=== PATIENT | male | born 1960 | race American Indian/Alaskan Native ===

== ENCOUNTER 2017-11-10 01:22 | Inpatient (IN) | payer OTHER ==
[2017-11-10] MEDS ORDERED: PROVENTIL IH ONE ×2 (01:48→02:00)
--- NOTE | 2017-11-10 02:31 | XRay Report ---
FINAL REPORT PROCEDURE: XR CHEST ROUTINE 2V TECHNIQUE: PA and lateral chest radiographs were obtained. CPT 52510 HISTORY: Shortness of breath COMPARISON: No prior studies are available for comparison. FINDINGS: Heart: Normal. Mediastinum/Vessels: Normal. Lungs/Pleural space: Lungs are expanded. There are mild fibrotic changes at the lung bases. There are no active infiltrates. There is no effusion or pneumothorax.. Bony thorax: No acute osseous abnormality. Other: IMPRESSION: Heart size is normal.. Lungs are expanded. There are mild fibrotic changes at the lung bases. There are no active infiltrates. There is no effusion or pneumothorax..
[2017-11-10 02:34] LABS: Basophils # (Auto) 0.1 K/mm3 (0.0-0.1); Basophils % (Auto) 0.7 % (0.0-1.8); Eosinophils # (Auto) 0.1 K/mm3 (0.0-0.4); Eosinophils % (Auto) 0.6 % (0.0-4.3); Hematocrit 47.4 % (35.5-45.6); Hemoglobin 15.7 gm/dl (11.8-15.2); Lymphocytes # (Auto) 2.7 K/mm3 (1.2-5.4); Lymphocytes % (Auto) 31.9 % (13.4-35.0); Mean Corpuscular HGB Conc 33 % (32-34); Mean Corpuscular Hemoglobin 28 pg (28-32); Mean Corpuscular Volume 86 fl (84-94); Monocytes # (Auto) 0.9 K/mm3 (0.0-0.8); Platelet Count 262 K/mm3 (140-440); Red Blood Count 5.54 M/mm3 (3.65-5.03); Red Cell Distribution Width 17.9 % (13.2-15.2)
[2017-11-10 02:46] LABS: Calcium 8.7 mg/dL (8.4-10.2)
[2017-11-10 05:30] LABS: Chol/HDL Ratio 4.76 %
[2017-11-10] MEDS ORDERED: ATROVENT IH ONE (06:16)
[2017-11-10] MEDS ORDERED: DUONEB *Not for PRN Use IH ONE (06:21)
--- NOTE | 2017-11-10 07:05 | Emergency Department Report ---
ED General Adult HPI - General Chief complaint: Dyspnea/Respdistress Stated complaint: SB / CLAUDE Time Seen by Provider: 11/10/17 06:40 Source: patient Mode of arrival: Ambulatory Limitations: No Limitations - History of Present Illness Initial comments: Many year smoker sick with a cough and cold for 2 weeks to 3 weeks now with greenish yellowish productive sputum and exertional dyspnea. Denies chest pain denies Swelling or history of DVT PE no nausea vomiting diarrhea no tearing pain no focal neural complaints no headache no stiff neck no fever -: Gradual, days(s) Radiation: non-radiation Consistency: intermittent Worsens with: other (exertion) Associated Symptoms: malaise, shortness of breath. denies: confusion, chest pain, cough, diaphoresis, headaches, loss of appetite, syncope (rodriguez) Treatments Prior to Arrival: none - Related Data Home Medications Medication Instructions Recorded Confirmed Last Taken No Known Home Medications [No 11/10/17 11/10/17 Unknown Reported Home Medications] Allergies Allergy/AdvReac Type Severity Reaction Status Date / Time No Known Allergies Allergy Unverified 11/10/17 01:59 ED Review of Systems ROS: Stated complaint: SB / CLAUDE Other details as noted in HPI Comment: All other systems reviewed and negative Constitutional: malaise. denies: diaphoresis, fever Eyes: denies: eye discharge, vision change ENT: denies: dental pain, hearing loss, epistaxis Respiratory: shortness of breath, SOB with exertion, wheezing. denies: orthopnea, stridor Cardiovascular: dyspnea on exertion. denies: chest pain, palpitations, orthopnea, edema, syncope, paroxysmal nocturnal dyspnea Gastrointestinal: denies: diarrhea, constipation, hematemesis, melena Musculoskeletal: denies: joint swelling, arthralgia Neurological: denies: headache, weakness, numbness, paresthesias, confusion ED Past Medical Hx - Past Medical History Previous Medical History?: No - Surgical History Past Surgical History?: No - Social History Smoking Status: Current Every Day Smoker Substance Use Type: None - Medications Home Medications: Home Medications Medication Instructions Recorded Confirmed Last Taken Type No Known Home Medications [No 11/10/17 11/10/17 Unknown History Reported Home Medications] ED Physical Exam - General Limitations: No Limitations General appearance: alert, in distress, other (mild respiratory distress O2 sat 88 and 92 room air) - Head Head exam: Present: atraumatic, normocephalic - Eye Eye exam: Present: normal appearance, PERRL, EOMI - ENT ENT exam: Present: normal exam, normal orophraynx - Neck Neck exam: Present: normal inspection. Absent: tenderness, meningismus - Respiratory Respiratory exam: Present: rhonchi, prolonged expiratory. Absent: stridor, accessory muscle use - Cardiovascular Cardiovascular Exam: Present: regular rate, normal rhythm, normal heart sounds - GI/Abdominal GI/Abdominal exam: Present: soft. Absent: tenderness, guarding, rebound, rigid , mass, pulsatile mass - Extremities Exam Extremities exam: Present: normal inspection, normal capillary refill. Absent: pedal edema, joint swelling, calf tenderness - Back Exam Back exam: Present: normal inspection. Absent: CVA tenderness (L), muscle spasm , paraspinal tenderness, vertebral tenderness - Neurological Exam Neurological exam: Present: alert, oriented X3, CN II-XII intact. Absent: motor sensory deficit - Psychiatric Psychiatric exam: Present: normal affect - Skin Skin exam: Present: warm. Absent: cyanosis, diaphoretic, erythema, urticaria, vesicles, petechiae, pallor ED Course Vital Signs 11/10/17 11/10/17 11/10/17 01:23 03:36 03:38 Temperature 97.4 F L Pulse Rate 116 H 113 H 119 H Pulse Rate [ Bilateral Throughout] Respiratory 22 25 H 30 H Rate Respiratory Rate [Bilateral Throughout] Blood Pressure 114/82 O2 Sat by Pulse 96 Oximetry 11/10/17 11/10/17 11/10/17 03:39 03:40 03:41 Temperature Pulse Rate 115 H 117 H 115 H Pulse Rate [ Bilateral Throughout] Respiratory 22 40 H 36 H Rate Respiratory Rate [Bilateral Throughout] Blood Pressure 111/89 111/89 O2 Sat by Pulse 93 100 93 Oximetry 11/10/17 11/10/17 11/10/17 03:43 03:45 03:47 Temperature Pulse Rate 113 H 109 H 116 H Pulse Rate [ Bilateral Throughout] Respiratory 21 27 H 38 H Rate Respiratory Rate [Bilateral Throughout] Blood Pressure 111/89 111/89 111/89 O2 Sat by Pulse 94 96 93 Oximetry 11/10/17 11/10/17 11/10/17 03:49 03:51 03:53 Temperature Pulse Rate 108 H 109 H 113 H Pulse Rate [ Bilateral Throughout] Respiratory 31 H 29 H 27 H Rate Respiratory Rate [Bilateral Throughout] Blood Pressure 111/89 111/89 111/89 O2 Sat by Pulse 91 92 87 Oximetry 11/10/17 11/10/17 11/10/17 03:55 03:57 03:59 Temperature Pulse Rate 112 H 108 H 111 H Pulse Rate [ Bilateral Throughout] Respiratory 38 H 23 22 Rate Respiratory Rate [Bilateral Throughout] Blood Pressure 111/89 111/89 111/89 O2 Sat by Pulse 92 78 L 81 L Oximetry 11/10/17 11/10/17 11/10/17 04:00 04:01 04:03 Temperature Pulse Rate 103 H 113 H 105 H Pulse Rate [ Bilateral Throughout] Respiratory 24 20 27 H Rate Respiratory Rate [Bilateral Throughout] Blood Pressure 119/86 119/86 119/86 O2 Sat by Pulse 89 90 85 Oximetry 11/10/17 11/10/17 11/10/17 04:05 04:07 04:09 Temperature Pulse Rate 110 H 112 H 106 H Pulse Rate [ Bilateral Throughout] Respiratory 25 H 38 H 34 H Rate Respiratory Rate [Bilateral Throughout] Blood Pressure 111/89 111/89 111/89 O2 Sat by Pulse 85 88 96 Oximetry 11/10/17 11/10/17 11/10/17 04:11 04:31 05:00 Temperature Pulse Rate 107 H 103 H 107 H Pulse Rate [ Bilateral Throughout] Respiratory 29 H 21 30 H Rate Respiratory Rate [Bilateral Throughout] Blood Pressure 111/89 119/83 121/93 O2 Sat by Pulse 80 L 91 84 Oximetry 11/10/17 11/10/17 11/10/17 05:31 06:00 06:24 Temperature Pulse Rate 115 H 111 H Pulse Rate [ 106 H Bilateral Throughout] Respiratory 23 24 Rate Respiratory 18 Rate [Bilateral Throughout] Blood Pressure 113/85 114/89 O2 Sat by Pulse 93 97 Oximetry 11/10/17 11/10/17 06:31 07:00 Temperature Pulse Rate 114 H 112 H Pulse Rate [ Bilateral Throughout] Respiratory 28 H 29 H Rate Respiratory Rate [Bilateral Throughout] Blood Pressure 117/90 135/97 O2 Sat by Pulse 87 76 L Oximetry ED Medical Decision Making - Lab Data Result diagrams: 11/10/17 02:06 11/10/17 02:06 - EKG Data -: EKG Interpreted by [place] EKG shows normal: sinus rhythm - EKG Data Interpretation: LVH 11/10/17 07:42 Sinus tachycardia rate 114 poor R-wave progression and LVH with strain incomplete right bundle left atrial enlargement - Radiology Data Radiology results: report reviewed - Medical Decision Making EKG shows LVH with incomplete right bundle with left atrial enlargement. Chest x-ray shows mild fibrotic change normal heart size with no infiltrate. Patient is having exertional dyspnea w tropwas elevated I discussed case with Dr. JAMAR ARZOLA for admit will also place a consult cardiology. Patient did have an aspirin he is not having chest pain he was given nitroglycerin paste symptoms do appear to be related to chronic bronchitis with acute exacerbation with a ischemic injury to the heart. No evidence of STEMI at this time on EKG, no pdrevious cards eval per pt, will admit for furthereval Critical care attestation.: If time is entered above; I have spent that time in minutes in the direct care of this critically ill patient, excluding procedure time. ED Disposition Clinical Impression: NSTEMI (non-ST elevated myocardial infarction), COPD with acute exacerbation Disposition: -09 OP ADMIT IP TO THIS HOSP Is pt being admited?: Yes Condition: Stable Time of Disposition: 08:30
[2017-11-10] MEDS ORDERED: NITRO-BID 2% TP ONE (07:06)
[2017-11-10] MEDS ORDERED: ASPIRIN PO ONE (07:06)
[2017-11-10] MEDS ORDERED: NACL 0.9% 500 ML 500 ML IV ONE (07:08)
[2017-11-10] MEDS ORDERED: TYLENOL PO PRN (07:45)
[2017-11-10] MEDS ORDERED: SODIUM CHLORIDE FLUSH SYRINGE 10 ML IV PRN (07:45)
[2017-11-10] MEDS ORDERED: MORPHINE IV PRN (07:45)
[2017-11-10] MEDS ORDERED: AMBIEN PO PRN (07:45)
[2017-11-10] MEDS ORDERED: NITROSTAT SL PRN (07:45)
[2017-11-10] MEDS ORDERED: REGLAN IV PRN (07:45)
[2017-11-10] MEDS ORDERED: ZOFRAN IV PRN (07:45)
--- NOTE | 2017-11-10 07:58 | History and Physical Report ---
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 He also admits to nausea and vomiting for the past 2 days. He reports that he has had a "cold" for one week and and he was exposed to black mold several days ago during work and attributes his symptoms to the black mold exposure. He has been taking OTC cold medications but did not resolve his symptom. He denies any chest pain, palpitations, diaphoresis, diarrhea, dizziness or syncope. He denies any prior cardiac history or cardiac evaluation. In the ER his troponin is elevated at 0.547, pro-BNP 8094, CXR with no acute findings per radiology. ECG demonstrates ST with incomplete LBBB, LVH with repolarization abnormalities, and questionable ST depressions in precordial leads. cardiology was consulted in the ER and Pt will be taken to clinical genetics laboratory chief for coronary angiography for definitive diagnosis. Past medical History: h/o tobacco abuse Past surgical History: None Social History: Lives with family, admits smoking, denies drinking and elicit drug abuse. Family History: Significant for hypertension Review of System: Constitutional: no fever, no chills, no weight loss Ears, eyes, nose, mouth and throat: no nasal congestion, no nasal discharge, no sinus pressure, no vision change, no red eye. Neck: No neck pain or rigidity. Cardiovascular: No chest pain, no orthopnea, no palpitations, no leg swelling Respiratory: + shortness of breath, + cough, + congestion, no wheezing Gastrointestinal: no abdominal pain, no nausea, no vomiting Genitourinary : no dysuria, no hematuria Musculoskeletal: no joint swelling or muscle ache Integumentary: no rash, no pruritis Neurological: no parathesias, no numbness, no tingling Endocrine: no cold or heat intolerance, no polyuria or polydipsia Hematologic/Lymphatic: no easy bruising, no easy bleeding, no gland swelling Allergic/Immunologic: no urticaria, no angioedema. Medications and Allergies Allergies Allergy/AdvReac Type Severity Reaction Status Date / Time No Known Allergies Allergy Unverified 11/10/17 01:59 Home Medications Medication Instructions Recorded Confirmed Last Taken Type AtorvaSTATin [Lipitor] 80 mg PO QHS tablet 11/10/17 Unknown Rx Famotidine [Pepcid] 20 mg PO BID tablet 11/10/17 Unknown Rx Furosemide [Lasix TAB] 40 mg PO QDAY #30 tablet 11/10/17 Unknown Rx Ipratropium/Albuterol Sulfate 1 ampul IH Q6HRT ampul.neb 11/10/17 Unknown Rx [DUONEB *Not for PRN Use*] Lisinopril [Prinivil] 5 mg PO DAILY #30 tablet 11/10/17 Unknown Rx Metoclopramide [Reglan INJ] 10 mg IV Q6H PRN vial 11/10/17 Unknown Rx Metoprolol [Lopressor TAB] 12.5 mg PO BID tablet 11/10/17 Unknown Rx Nitroglycerin [Nitrostat] 0.4 mg SL .Q5MIN PRN tablet 11/10/17 Unknown Rx Zolpidem [Ambien] 5 mg PO QHS PRN tablet 11/10/17 Unknown Rx Active Meds: Active Medications Acetaminophen (Tylenol) 650 mg PO Q4H PRN PRN Reason: Pain MILD(1-3)/Fever >100.5/MEZA Albuterol/Ipratropium (Duoneb *Not For Prn Use*) 1 ampul IH Q6HRT LEFTY Aspirin (Ecotrin) 325 mg PO QDAY LEFTY Atorvastatin Calcium (Lipitor) 80 mg PO QHS COUNTS INCLUDE 234 BEDS AT THE [facility] Enoxaparin Sodium (Lovenox) 100 mg 1 mg/kg (100 mg) SUB-Q Q12HR COUNTS INCLUDE 234 BEDS AT THE [facility] Famotidine (Pepcid) 20 mg PO BID LEFTY Metoclopramide HCl (Reglan) 10 mg IV Q6H PRN PRN Reason: Nausea And Vomiting Metoprolol Tartrate (Lopressor) 12.5 mg PO BID LEFTY Morphine Sulfate (Morphine) 2 mg IV Q4H PRN PRN Reason: Pain, Moderate (4-6) Nicotine (Habitrol) 21 mg TD ONCE ONE Stop: 11/10/17 07:58 Nitroglycerin (Nitrostat) 0.4 mg SL .Q5MIN PRN PRN Reason: Chest Pain Ondansetron HCl (Zofran) 4 mg IV Q8H PRN PRN Reason: Nausea And Vomiting Sodium Chloride (Sodium Chloride Flush Syringe 10 Ml) 10 ml IV BID LEFTY Sodium Chloride (Sodium Chloride Flush Syringe 10 Ml) 10 ml IV PRN PRN PRN Reason: LINE FLUSH Zolpidem Tartrate (Ambien) 5 mg PO QHS PRN PRN Reason: Insomnia Exam - Physical Exam Narrative exam: GENERAL: well-developed male lying on bed appeared to be in no discomfort. HEENT: Normocephalic. Atraumatic. No conjunctival congestion or icterus. Patient has moist mucous membranes. NECK: Supple. Trachea midline. CHEST/LUNGS: Clear to auscultated bilaterally, breathing nonlabored. No wheezes crackles or rhonchi. HEART/CARDIOVASCULAR: Regular in rate and rhythm. S1 and S2 positive. ABDOMEN: Abdomen is soft, nontender. Patient has normal bowel sounds. SKIN: There is no rash. Warm and dry. NEURO: No focal motor deficit. Follows command. MUSCULOSKELETAL: No joint effusion or tenderness. EXTRIMITY: + edema, no cyanosis or clubbing. PSYCH: Cooperative. - Constitutional Vitals: Temp Pulse Resp BP Pulse Ox 97.4 F L 112 H 29 H 135/97 76 L 11/10/17 01:23 11/10/17 07:00 11/10/17 07:00 11/10/17 07:00 11/10/17 07:00 Results - Labs CBC & Chem 7: 11/10/17 02:06 11/10/17 02:06 Labs: Abnormal lab results 11/10/17 11/10/17 11/10/17 Range/Units 02:06 02:06 02:06 RBC 5.54 H (3.65-5.03) M/mm3 Hgb 15.7 H (11.8-15.2) gm/dl Hct 47.4 H (35.5-45.6) % RDW 17.9 H (13.2-15.2) % [place] % (Auto) 11.0 H (0.0-7.3) % [place] # 0.9 H (0.0-0.8) K/mm3 BUN 27 H (9-20) mg/dL Glucose 110 H (75-100) mg/dL Troponin T 0.547 H* (0.00-0.029) ng/mL NT-Pro-B Natriuret Pep 8094 H (0-900) pg/mL HDL Cholesterol 26 L (40-59) mg/dL - Imaging and Cardiology EKG: report reviewed Chest x-ray: report reviewed (no active infiltrates, effusion or pneumothorax) Assessment and Plan NSTEMI - monitor with serial CE and EKG - will place on Aspirin, statin - as needed SL NTG and iv morphin for pain - We'll place on therapeutic dose of Lovenox - Monitor BP, add betablocker and will add ACEI if BP tolerates - order 2D echo and consult cardiology for further management - NPO now for possible cardiac cath Tobacco Use, counseled for cessation - Place on nicotine patch Possible Acute COPD exacerbation - as pt has tobacco abuse history might have underlying undiagnosed COPD - Will provide scheduled nebulizer breathing treatment and as needed - Place on empiric antibiotic, will hold steroid for now - will get sputum culture, chest x-ray was unremarkable - Provide supplemental oxygen to keep oxygen saturation above 92% - Consider to consult pulmonary if no improvement in next 24 hours - We'll place on sliding scale of insulin as patient will be on empiric steroid SIRS - Likely from COPD exacerbation and NSTEMI - We'll cover with empiric antibiotics for now, we'll follow culture - Provide DVT prophylaxis with Lovenox. The high probability of a clinically significant, sudden or life threatening deterioration of the CVS system(s) required my full and direct attention, intervention and personal management. The aggregate critical care time was [45] minutes. This time is in addition to time spent performing reported procedures but includes the following: [x] Data Review and interpretation [x] Patient assessment and monitoring of vital signs [x] Documentation [x] Medication orders and management
[2017-11-10] MEDS ORDERED: DUONEB *Not for PRN Use IH SCH (08:00)
[2017-11-10] MEDS ORDERED: HABITROL TD ONE (08:00)
[2017-11-10 08:42] LABS: INR 1.2 (0.87-1.13)
[2017-11-10] MEDS ORDERED: HEPARIN 10,000 UNITS/10 ML IV ONE (09:04)
[2017-11-10] MEDS ORDERED: HEPARIN ONE (09:09)
[2017-11-10] MEDS ORDERED: NACL 0.9% 1000 ML 1,000 ML ONE (09:09)
[2017-11-10] MEDS ORDERED: HEPARIN 10,000 UNITS/10 ML ONE (09:24)
[2017-11-10] MEDS ORDERED: HEPARIN/NS 5000 UNIT/500ML(CATH LAB) 1,000 ML IR ONE (09:24)
[2017-11-10] MEDS ORDERED: VERSED ONE (09:25)
[2017-11-10] MEDS ORDERED: CALAN ONE (09:25)
[2017-11-10] MEDS ORDERED: NITROGLYCERIN SYRINGE 3 ML ONE (09:25)
[2017-11-10] MEDS ORDERED: SUBLIMAZE ONE (09:26)
--- NOTE | 2017-11-10 09:26 | Consultation ---
History of Present Illness Consult date: 11/10/17 Requesting physician: ROMARIO KNOTT Consult reason: elevated troponin History of present illness: The pt is a 57 YO male with a past medical history significant for tobacco use. He is previously unknown to our practice. He presented with complaints of progressively worsening SOB, TERAN and BLE edema for 2 days prior to arrival. He reports that he has had a "cold" for one week and has been taking OTC cold medications. 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 He also admits to nausea and vomiting for the past 2 days. He denies any chest pain, palpitations, diaphoresis, diarrhea, dizziness or syncope. He denies any prior cardiac history or cardiac evaluation. Troponin is elevated at 0.547, pro-BNP 8094, CXR with no acute findings per radiology. ECG demonstrates ST with incomplete LBBB, LVH with repolarization abnormalities, and questionable ST depressions in precordial leads. Pt will be taken to woven label designer for coronary angiography for definitive diagnosis. Past History Past Medical History: No medical history Social history: smoking. denies: alcohol abuse, prescription drug abuse Medications and Allergies Allergies Allergy/AdvReac Type Severity Reaction Status Date / Time No Known Allergies Allergy Unverified 11/10/17 01:59 Home Medications Medication Instructions Recorded Confirmed Last Taken Type No Known Home Medications [No 11/10/17 11/10/17 Unknown History Reported Home Medications] Active Meds: Active Medications Acetaminophen (Tylenol) 650 mg PO Q4H PRN PRN Reason: Pain MILD(1-3)/Fever >100.5/MEZA Albuterol/Ipratropium (Duoneb *Not For Prn Use*) 1 ampul IH Q6HRT LEFTY Last Admin: 11/10/17 09:17 Dose: Not Given Aspirin (Ecotrin) 325 mg PO QDAY LEFTY Atorvastatin Calcium (Lipitor) 80 mg PO QHS LEFTY Famotidine (Pepcid) 20 mg PO BID LEFTY Levofloxacin/Dextrose (Levaquin 750mg/150ml) 750 mg in 150 mls @ 100 mls/hr IV Q24HR LEFTY; Protocol Sodium Chloride (Nacl 0.9% 500 Ml) 500 mls @ 50 mls/hr IV DIRECT LEFTY Stop: 11/10/17 19:59 Metoclopramide HCl (Reglan) 10 mg IV Q6H PRN PRN Reason: Nausea And Vomiting Metoprolol Tartrate (Lopressor) 12.5 mg PO BID [facility] Morphine Sulfate (Morphine) 2 mg IV Q4H PRN PRN Reason: Pain, Moderate (4-6) Nitroglycerin (Nitrostat) 0.4 mg SL .Q5MIN PRN PRN Reason: Chest Pain Ondansetron HCl (Zofran) 4 mg IV Q8H PRN PRN Reason: Nausea And Vomiting Sodium Chloride (Sodium Chloride Flush Syringe 10 Ml) 10 ml IV BID LEFTY Sodium Chloride (Sodium Chloride Flush Syringe 10 Ml) 10 ml IV PRN PRN PRN Reason: LINE FLUSH Zolpidem Tartrate (Ambien) 5 mg PO QHS PRN PRN Reason: Insomnia Review of Systems Constitutional: no weight loss, no weight gain, no fever, no chills, no sweats Ears, nose, mouth and throat: nasal congestion, no ear pain, no nose pain, no sinus pressure, no sinus pain Cardiovascular: chest pain, edema, shortness of breath, dyspnea on exertion, leg edema, decreased exercise tolerance, no orthopnea, no palpitations, no rapid /irregular heart beat, no syncope, no lightheadedness, no paroxysmal nocturnal dyspnea, no high blood pressure Respiratory: cough, shortness of breath, dyspnea on exertion, no congestion, no wheezing, no pain on inspiration Gastrointestinal: nausea, vomiting, no abdominal pain, no diarrhea, no constipation, no change in bowel habits Genitourinary Male: no dysuria, no hematuria, no flank pain, no discharge, no urinary frequency, no urinary hesitancy Musculoskeletal: no neck stiffness, no neck pain, no shooting arm pain, no arm numbness/tingling, no low back pain, no shooting leg pain, no leg numbness/ tingling, no redness of joints Integumentary: no rash, no pruritis, no redness, no sores, no wounds Neurological: no head injury, no paralysis, no weakness, no parathesias, no numbness, no tingling, no seizures, no syncope Psychiatric: no anxiety Endocrine: no cold intolerance, no heat intolerance Hematologic/Lymphatic: no easy bruising, no easy bleeding, no lymphadenopathy Allergic/Immunologic: no urticaria, no wheezing, no persistent infections Physical Examination Vital Signs Temp Pulse Resp BP Pulse Ox 97.4 F L 116 H 22 114/82 96 11/10/17 01:23 11/10/17 01:23 11/10/17 01:23 11/10/17 01:23 11/10/17 01:23 General appearance: no acute distress HEENT: Positive: PERRL, Normocephaly, Mucus Membranes Moist Neck: Positive: neck supple, trachea midline Cardiac: Positive: Regular Rhythm, S1/S2, Tachycardia Lungs: Positive: Decreased Breath Sounds Neuro: Positive: Grossly Intact, Cranial Nerve 2-12 Intact Abdomen: Positive: Soft. Negative: Tender Skin: Positive: Clear. Negative: Rash, Wound Musculoskeletal: No Pain, Normal Range of Motion Extremities: Present: +2 Edema (BLE pitting ) Results 11/10/17 02:06 11/10/17 02:06 Coagulation 11/10/17 Range/Units 08:14 PT 15.9 H (12.2-14.9) Sec. INR 1.20 H (0.87-1.13) Lipids 11/10/17 Range/Units 02:06 Triglycerides 95 (2-149) mg/dL Cholesterol 124 (50-199) mg/dL HDL Cholesterol 26 L (40-59) mg/dL Cholesterol/HDL Ratio 4.76 % CBC 11/10/17 Range/Units 02:06 WBC 8.5 (4.5-11.0) K/mm3 RBC 5.54 H (3.65-5.03) M/mm3 Hgb 15.7 H (11.8-15.2) gm/dl Hct 47.4 H (35.5-45.6) % Plt Count 262 (140-440) K/mm3 Lymph # 2.7 (1.2-5.4) K/mm3 [place] # 0.9 H (0.0-0.8) K/mm3 Eos # 0.1 (0.0-0.4) K/mm3 Baso # 0.1 (0.0-0.1) K/mm3 Comprehensive Metabolic Panel 11/10/17 Range/Units 02:06 Sodium 139 (137-145) mmol/L Potassium 4.9 (3.6-5.0) mmol/L Chloride 102.8 (98-107) mmol/L Carbon Dioxide 22 (22-30) mmol/L BUN 27 H (9-20) mg/dL Creatinine 1.3 (0.8-1.5) mg/dL Glucose 110 H (75-100) mg/dL Calcium 8.7 (8.4-10.2) mg/dL - Imaging and Cardiology Echo: pending EKG: report reviewed, image reviewed EKG interpretations - Telemetry EKG Rhythm: Sinus Tachycardia - EKG Sinus rhythms and dysrhythmias: sinus tachycardia AV and intraventricular conduction: left bundle branch block (incomplete) Repolarization changes or abnormalities: repolarization abn secondary to ventricular hypertrophy, ST or T wave suggestive of ischemia Assessment and Plan Assessment: NSTEMI type I Acute heart failure Sinus tachycardia Tobacco use - cessation encouraged Plan: Give IV heparin 5,000 units x 1 dose now. Proceed with [facility]. Indications, potential risks and benefits reviewed with pt and he is agreeable to proceed. Obtain echo. The patient has been seen in conjunction with Dr. Mckenzie Alfaro who agrees with the assessment and plan of care.
[2017-11-10 10:00] LABS: Creatine Kinase MB 4.9 ng/mL (0.0-4.0)
[2017-11-10] MEDS ORDERED: LOPRESSOR PO SCH (10:00)
[2017-11-10] MEDS ORDERED: NACL 0.9% 500 ML 500 ML IV SCH (10:00)
[2017-11-10] MEDS ORDERED: PEPCID PO SCH (10:00)
[2017-11-10] MEDS ORDERED: LEVAQUIN 750MG/150ML 750 MG/150 ML BAG IV SCH (10:00)
[2017-11-10] MEDS ORDERED: LOVENOX SUB-Q SCH (10:00)
[2017-11-10] MEDS ORDERED: ECOTRIN PO SCH (10:00)
[2017-11-10] MEDS ORDERED: SODIUM CHLORIDE FLUSH SYRINGE 10 ML IV SCH (10:00)
[2017-11-10] MEDS: XYLOCAINE 2% INFILTRATI ONE ×2 (10:11→10:20)
[2017-11-10] MEDS ORDERED: HEPARIN/NS 5000 UNIT/500ML(CATH LAB) 500 ML IR ONE (10:26)
[2017-11-10] MEDS ORDERED: LASIX ONE (10:44)
[2017-11-10] MEDS ORDERED: HEPARIN/ 0.45% NACL-25,000 UNIT/500 ML 25,000 UNIT/500 ML BAG ONE (10:44)
[2017-11-10] MEDS ORDERED: XYLOCAINE 2% INFILTRATI ONE (10:48)
--- NOTE | 2017-11-10 11:24 | Cardiac Catherization Report ---
INDICATION FOR PROCEDURE: The patient is a very pleasant 57-year-old -[place] gentleman, who presents with significant shortness of breath, tachycardia, abnormal cardiac enzymes, referred for left heart catheterization. Risks, benefits, potential alternatives explained at length prior to obtaining informed consent. PROCEDURE IN DETAIL: The patient was brought to the [facility] in a postabsorptive state, prepped and draped in sterile fashion. Mark's test was normal. A 2 mL of 2% lidocaine used to anesthetize the right wrist. A standard 6-Stateless hydrophilic sheath used to cannulate the right radial artery via modified Seldinger technique. All exchanges performed to exchange a J-tip guidewire. JL3.5 catheter used to engage the left main. No dampening or ventricularization. Cineangiography performed in all projections. JR4 catheter was used to cross the aortic valve under fluoroscopic guidance. Left ventriculography performed in 30 LORD and 30 PRESTON projections via hand injections, catheter flushed. Manual pullback performed with continuous pressure monitoring. Catheter used to engage the right coronary, no dampening or ventricularization. Cineangiography performed in all projections. Next, catheter removed from the body of wire. Due to findings of severe multivessel coronary disease and severe cardiomyopathy with a markedly elevated LVEDP, intra-aortic balloon pump was placed. A 7-Stateless balloon pump sheath was placed in the right common femoral artery via modified surgeon Seldinger technique under fluoroscopic guidance. Next, intraaortic balloon pump was placed under fluoroscopic guidance and tested out and is performing normally. SEDATION: I directly supervised the administration of moderate sedation with fentanyl and Versed from 10:00 a.m. to 10:50 a.m., given how critically ill this gentleman is. I spent approximately 30 minutes of critical care time. DATA: Aortic pressure is 120/70, LV pressure is 120, LVEDP of nearly 50 mmHg. The patient remained in sinus tachycardia throughout the procedure with heart rate in the 110 range. No dysrhythmias. Left ventriculography reveals severe global left ventricular hypokinesis, estimated ejection fraction of 10-15%, markedly LVEDP. No evidence of aortic stenosis. CORONARY ANATOMY: This is a right dominant system. Right coronary is a moderate sized vessel, courses AV groove, distally bifurcates in the posterior descending and posterolateral branch. Long 60-70% proximal and mid right coronary stenosis. Left main is short. No significant disease, bifurcates left anterior descending and left circumflex. Left circumflex is a chronic occlusion proximally extensive right to left collaterals identified. LAD is a moderate sized vessel, courses anterior intergroove, wraps around the apex. There is a 90% proximal LAD stenosis. CONCLUSIONS: 1. Severe and diffuse multivessel coronary disease as aforementioned. 2. Severe globally dilated and hypokinetic left ventricle with systolic performance, approximately 10-15%. 3. Markedly elevated LVEDP. 4. Physiologic sinus tachycardia due to diminished cardiac output. 5. Successful intraaortic balloon pump placement. At this point, the patient is clinically improved. No chest pain, shortness of breath. He is lying flat, shortness of breath is improved. IV Lasix will be given. Gu catheter will be placed. Heparin drip will be started. Discussed with Dr. Palmer. We transferred to for further care. Diuresis, possible assist device and/or revascularization. At this point, he appears to be stable for transport. No dysrhythmias or electrical or hemodynamic instability. Results of procedure explained to the patient. All questions and concerns were addressed. JOB# [id number] SBM/NTS
--- NOTE | 2017-11-10 11:41 | Event Note ---
Date: 11/10/17 Pt underwent LHC which showed severe diffuse multivessel CAD with severely globally dilated and hypokinetic LV with EF 10-15%, markedly elevated LVEDP. IABP placed. Pt to be tx to [facility] under the care of Dr. Palmer for possible CABG. Jennie MCGEE NP / DR. EL
--- NOTE | 2017-11-10 11:59 | Discharge Summary ---
Providers - Providers Date of Admission: 11/10/17 07:45 Date of discharge: 11/10/17 Attending physician: ROMARIO KNOTT 11/10/17 Consult to Cardiac Rehabilitation [CONS] Routine Reason For Exam: Phase 1 11/10/17 07:45 Consult to Cardiology [CONS] Routine Consulting Provider: JAYDA VICTORIA Reason For Exam: elevated troponine Consult to Physician [CONS] Routine Comment: [facility] Consulting Provider: JAYDA VICTORIA Physician Instructions: Reason For Exam: NSTEMI 11/10/17 11:39 Consult to Cardiac Rehabilitation [CONS] Routine Reason For Exam: Cardiac Rehab Evaluation Primary care physician: OCCUPATIONAL HEALTH MANAGER Hospitalization Condition: Stable Hospital course: This is a 57 y/o male with h/o tobacco abuse, 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 He also admits to nausea and vomiting for the past 2 days. He reports that he has had a "cold" for one week and and he was exposed to black mold several days ago during work and attributes his symptoms to the black mold exposure. He has been taking OTC cold medications but did not resolve his symptom. He denies any chest pain, palpitations, diaphoresis, diarrhea, dizziness or syncope. He denies any prior cardiac history or cardiac evaluation. In the ER his troponin is elevated at 0.547, pro-BNP 8094, CXR with no acute findings per radiology. ECG demonstrates ST with incomplete LBBB, LVH with repolarization abnormalities, and questionable ST depressions in precordial leads. Cardiology was consulted in the ER and Pt was taken to [facility] for coronary angiography for definitive diagnosis. Pt underwent LHC which showed severe diffuse multivessel CAD with severely globally dilated and hypokinetic LV with EF 10-15%, markedly elevated LVEDP. IABP placed. Patient to be transfer to [place] under the care of Dr. Palmer for possible CABG. Discharge Diagnosis: NSTEMI type I, Multivessel coronary artery disease, will need CABG Acute heart failure, with EF 10-15% Sinus tachycardia Possible underlying COPD Tobacco use - cessation encouraged Disposition: DC/TX-70 ANOTHER TYPE HLTHCARE Time spent for discharge: 34 minutes Core Measure Documentation - Palliative Care Palliative Care/ Comfort Measures: Not Applicable - Core Measures Any of the following diagnoses?: heart failure - Heart Failure Discharge Requirements JUAN/ARB for LVSD if EF <40%: Yes Beta wale at discharge: Yes Exam - Physical Exam Narrative exam: GENERAL: well-developed male lying on bed appeared to be in no discomfort. HEENT: Normocephalic. Atraumatic. No conjunctival congestion or icterus. Patient has moist mucous membranes. NECK: Supple. Trachea midline. CHEST/LUNGS: Clear to auscultated bilaterally, breathing nonlabored. No wheezes crackles or rhonchi. HEART/CARDIOVASCULAR: Regular in rate and rhythm. S1 and S2 positive. ABDOMEN: Abdomen is soft, nontender. Patient has normal bowel sounds. SKIN: There is no rash. Warm and dry. NEURO: No focal motor deficit. Follows command. MUSCULOSKELETAL: No joint effusion or tenderness. EXTRIMITY: + edema, no cyanosis or clubbing. PSYCH: Cooperative. - Constitutional Vitals: Temp Pulse Resp BP Pulse Ox 97.8 F 90 23 130/75 95 11/10/17 11:35 11/10/17 11:45 11/10/17 11:45 11/10/17 11:45 11/10/17 11:45 Plan Activity: other (bedrest) Weight Bearing Status: Non-Weight Bearing Diet: low cholesterol, low salt Follow up with: PRIMARY CARE, [Primary Care Provider] - 3-5 Days Prescriptions: Furosemide [Lasix TAB] 40 mg PO QDAY #30 tablet Lisinopril [Prinivil] 5 mg PO DAILY #30 tablet
[2017-11-10 16:23] VITALS: BP 128/85
== END 2017-11-10 16:45 | disposition home or self-care (01) | DRG 281 ==
LOC: ED 01:22 → 4A 07:45
PROVIDERS: ADMIT Internal Medicine; ATTEND Internal Medicine
PROC: 4A023N7 Measurement of Cardiac Sampling and Pressure, Left Heart, Percutaneous Approach (ICD-10-PCS; principal; 2017-11-10)
PROC: B2111ZZ Fluoroscopy of Multiple Coronary Arteries using Low Osmolar Contrast (ICD-10-PCS; 2017-11-10)
PROC: B2151ZZ Fluoroscopy of Left Heart using Low Osmolar Contrast (ICD-10-PCS; 2017-11-10)
DX: I21.4 Non-ST elevation (NSTEMI) myocardial infarction (principal); J44.1 Chronic obstructive pulmonary disease with (acute) exacerbation; R65.10 Systemic inflammatory response syndrome (SIRS) of non-infectious origin without acute organ dysfunction; J40 Bronchitis, not specified as acute or chronic; I50.9 Heart failure, unspecified; I25.10 Atherosclerotic heart disease of native coronary artery without angina pectoris; R00.0 Tachycardia, unspecified; Z72.0 Tobacco use; Z71.6 Tobacco abuse counseling
CPT/HCPCS: 33967; 36415; 71046; 80048; 80061; 82550; 82553; 83880; 84484; 85025; 85347; 85610; 87040; 93005; 93010; 93458; 94640; 96365; 96366; 96374; C1894; J1644; J1940; J2250; J3010; J7030; Q9967